=== PATIENT | female | born 1970 | race Caucasian/White ===

== ENCOUNTER 2017-12-11 20:14 | Emergency (ER) | payer OTHER ==
[~2017-12-11] VITALS: Ht 160 cm; Wt 81.4 kg
[2017-12-11] MEDS ORDERED: ATEN25TA PO (20:18)
[2017-12-11 21:42] VITALS: BP 141/83
[2017-12-11] MEDS ORDERED: LORazepam 2 MG TABLET PO ONE (22:00)
== END 2017-12-11 22:30 | disposition home or self-care (01) ==
LOC: EMS 20:15
DX: F41.9 Anxiety disorder, unspecified (principal); F43.9 Reaction to severe stress, unspecified; I10 Essential (primary) hypertension; Z88.6 Allergy status to analgesic agent
CPT/HCPCS: 93005; 99284

== ENCOUNTER 2018-11-23 10:51 | Emergency (ER) | payer SELFPAY ==
[~2018-11-23] VITALS: Ht 167.6 cm; Wt 86.4 kg
[~2018-11-23 10:51] MED LIST: ATEN25TA PO
[2018-11-23] MEDS ORDERED: AZIT250T9 PO (10:59)
[2018-11-23] MEDS ORDERED: BENZOCAINE/MENTHOL LOZENGE PO ONE (12:30)
[2018-11-23] MEDS ORDERED: KETOROLAC TROMETHAMINE 30 MG/ML VIAL IM ONE (12:30)
[2018-11-23 13:06] LABS: BASOPHILS % (AUTO) 0.3 % (0.0-2.0); HEMOGLOBIN 13.2 g/dL (12.0-16.0); LYMPHOCYTES # (AUTO) 2.1 K/uL (1.0-4.8); LYMPHOCYTES % (AUTO) 36.5 % (22.0-44.0); MEAN CORPUSCULAR HEMOGLOBIN 27.4 pg (26.0-34.0); MEAN CORPUSCULAR VOLUME 83 fL (80-100); MONOCYTES # (AUTO) 0.5 K/uL (0.1-1.0); MONOCYTES % (AUTO) 9.3 % (2.0-9.0); NEUTROPHILS # (AUTO) 3.1 K/uL (1.8-7.7); NEUTROPHILS % (AUTO) 52.9 % (40.0-70.0); PLATELET COUNT (AUTO) 240 K/uL (150-450); RED BLOOD CELL COUNT(AUTO) 4.81 MIL/uL (4.00-5.20); RED CELL DISTRIBUTION WIDTH 13.8 % (11.5-14.5)
[2018-11-23 13:17] LABS: ANION GAP 7 mmol/L (8-16); CALCIUM, TOTAL 9.5 mg/dL (8.8-10.5); CARBON DIOXIDE 29 mmol/L (22-29); CHLORIDE 103 mmol/L (98-107); CREATININE 0.86 mg/dL (0.60-1.30); GLOMERULAR FILTR. RATE CALC > 60 mL/min (>60); GLUCOSE,RANDOM 99 mg/dL (70-110); POTASSIUM 4.5 mmol/L (3.5-5.1); SODIUM SERUM 139 mmol/L (136-145); UREA NITROGEN, BLOOD 11 mg/dL (7-18)
[2018-11-23 13:21] LABS: ALANINE AMINOTRANSFERASE 18 U/L (12-78); ALBUMIN 3.7 g/dL (3.4-5.0); ALKALINE PHOSPHATASE 91 U/L (46-116); ASPARTATE AMINOTRANSFERASE 19 U/L (15-37); BILIRUBIN,TOTAL 0.4 mg/dL (0.1-1.0); TOTAL PROTEIN, SERUM 7.6 g/dL (6.4-8.2)
[2018-11-23 13:48] VITALS: BP 142/82
== END 2018-11-23 13:58 | disposition home or self-care (01) ==
LOC: EMS 10:53
DX: J06.9 Acute upper respiratory infection, unspecified (principal); M79.10 Myalgia, unspecified site; I10 Essential (primary) hypertension; Z88.5 Allergy status to narcotic agent
CPT/HCPCS: 36415; 80053; 85025; 86308; 96372; 99283; J1885